=== PATIENT | male | born 1975 | race Caucasian/White ===

== ENCOUNTER 2022-08-02 06:43 | Day surgery (SDC) | payer OTHER ==
--- NOTE | 2022-08-01 14:08 | HP ---
DATE OF SURGERY: 08/02/2022 HISTORY OF PRESENT ILLNESS: The patient is a 46-year-old male who presents for colonoscopy. He has not had any to date. Mother had colon cancer at age 57. Patient feels constipated and fullness in the rectum. PAST MEDICAL HISTORY: Hypertension. PAST SURGICAL HISTORY: Biceps tendon repair. ALLERGIES: NKDA. MEDICATIONS: Hydrochlorothiazide, losartan. FAMILY HISTORY: Colon cancer, diabetes, stroke, heart failure. SOCIAL HISTORY: Occasional alcohol. REVIEW OF SYSTEMS: CONSTITUTIONAL: Denies fever or chills. CHEST: Denies shortness of breath. CVS: Denies chest pain. ABDOMEN: Denies abdominal pain. PHYSICAL EXAMINATION: GENERAL: No acute distress. CHEST: Nonlabored. No shortness of breath. CVS: Regular rate and rhythm. ABDOMEN: Soft. IMPRESSION: Screening and family history of colon cancer. PLAN: Colonoscopy with Dr. James Zamorano. As dictated by Itzel Bolton NP.
[2022-08-02] MEDS ORDERED: Lactated Ringers 1,000 ML IV SCH (07:00)
[2022-08-02] MEDS ORDERED: Xylocaine-Mpf 2% 5 Ml Vial ONE (09:44)
[2022-08-02] MEDS ORDERED: DIPRIVAN 200 MG/20 ML IV ONE ×2 (09:44→10:14)
[2022-08-02] MEDS ORDERED: Versed 2 MG/2 ML Injection ONE (09:45)
[2022-08-02 11:15] VITALS: BP 137/78; PULSE 73; O2SAT 97
--- NOTE | 2022-08-02 13:06 | OP ---
SURGERY DATE/TIME: 08/02/2022 1005 PREOPERATIVE DIAGNOSIS: Screening. POSTOPERATIVE DIAGNOSIS: A 1 cm transverse colon polyp. PROCEDURE: Colonoscopy complete to cecum with hot polypectomy x1. SURGEON: James Zamorano M.D. ANESTHESIA: MAC. COMPLICATIONS: None. CONDITION: Stable. INDICATION: The patient presents for screening exam for healthcare at [facility]. DESCRIPTION OF PROCEDURE: He is taken to endoscopy. Left lateral decubitus position. Anal digital examination satisfactory. Scope introduced. Scope advanced to the cecum. Base of the cecum, ileocecal valve, appendiceal orifice was normal. Circumferential withdrawal back to through the transverse colon 1 cm polyp was taken with hot biopsy forceps to extinction. Through the rest of the transverse, splenic, descending, sigmoid, rectum, anus satisfactory. Plan follow up three years.
== END 2022-08-02 11:15 | disposition home or self-care (01) ==
LOC: SDC 06:43
PROVIDERS: ATTEND Surgery
DX: Z12.11 Encounter for screening for malignant neoplasm of colon (principal); Z80.0 Family history of malignant neoplasm of digestive organs; D12.3 Benign neoplasm of transverse colon
CPT/HCPCS: J2250; J2704

== ENCOUNTER 2023-02-27 09:01 | Emergency (ER) | payer OTHER ==
[2023-02-27 09:23] VITALS: TEMP 98
[2023-02-27] MEDS ORDERED: Sodium Chloride 0.9% 1000 ML 1,000 ML IV SCH (09:30)
--- NOTE | 2023-02-27 09:54 | XRAY ---
Indication: Left facial droop. Multiple contiguous axial images obtained through the head without contrast. Comparison: None Normal appearing brain parenchyma, ventricles, and bony calvarium. Visualized paranasal sinuses and mastoid air cells are clear. Impression: Normal CT head without contrast exam.
--- NOTE | 2023-02-27 10:04 | ERPHSYRPT ---
- History of Present Illness Time Seen by Provider: 02/27/23 09:10 Source: patient, family Exam Limitations: no limitations Patient Subjective Stated Complaint: C/O face numbness that started yesterday at 0730 Triage Nursing Assessment: Patient ambulated back to ER with a steady gait. He is alert and oriented. Speech is a bit mummbled at times. Left corner of mouth pulls downward; droop. C/O left sided neck pain; states that he orginially thoug ht that he pulled a muscle in his neck yesterday causing his issues. WYMAN WNL. No SOB. Physician History: This is an obese 47-year-old white male patient who presents to the emergency department with left-sided facial numbness that began at 07 30 on 02/25/2023. Yesterday evening, the patient's systolic blood pressure was greater than 200. Patient received 81 mg aspirin by his who provided additional, independent history. They also doubled up on his losartan blood pressure medicine. This morning, there is still facial numbness on his left side and they noticed left facial drooping and pain on the left lateral neck. Patient denies chest pain. He denies shortness of breath. He has no abdominal pain. He has never had anything like this before. He denies headache. He denies visual changes. Patient has a history of seasonal allergies and hypertension. Timing/Duration: yesterday Severity: mild Character of Deficits: altered sensation (Moderate left facial numbness), Left Facial (Left facial droop) Deficits: no difficulties Baseline/Normal Cognition: alert oriented x 3 Current Cognition: alert oriented x 3 Baseline Gait: walks w/o assistance Associated Symptoms: paresthesia, No loss of consciousness, No slurred speech, No vision changes, No chest pain Allergies/Adverse Reactions: No Known Drug Allergies Allergy (Verified 02/27/23 09:23) Home Medications: Losartan Potassium [Cozaar] 25 mg PO DAILY 06/26/22 [History] Fexofenadine HCl [Kiera Allergy] 1 tab PO DAILY 08/02/22 [History] Hx Tetanus, Diphtheria Vaccination/Date Given: Yes Hx Influenza Vaccination/Date Given: No Hx Pneumococcal Vaccination/Date Given: No Immunizations Up to Date: Yes Travel Risk - International Travel Have you traveled outside of the country in past 3 weeks: No - Coronavirus Screening Are you exhibiting any of the following symptoms?: No Close contact with a COVID-19 positive Pt in past 14-21 Days: No - Vaccine Status Have you recieved a Covid-19 vaccination: No - Review of Systems Constitutional: No Symptoms Eyes: No Symptoms Ears, Nose, & Throat: No Symptoms Respiratory: No Symptoms Cardiac: No Symptoms Abdominal/Gastrointestinal: No Symptoms Genitourinary Symptoms: No Symptoms Musculoskeletal: No Symptoms Skin: No Symptoms Neurological: Parasthesia (Left facial numbness), No Dizziness, No Gait Changes, No Headache Psychological: No Symptoms Endocrine: No Symptoms Hematologic/Lymphatic: No Symptoms Immunological/Allergic: No Symptoms All Other Systems: Reviewed and Negative - Past Medical History Pertinent Past Medical History: Yes Neurological History: No Pertinent History ENT History: No Pertinent History Cardiac History: Hypertension Respiratory History: No Pertinent History Endocrine Medical History: No Pertinent History Musculoskeletal History: No Pertinent History GI Medical History: No Pertinent History History: No Pertinent History Psycho-Social History: No Pertinent History Male Reproductive Disorders: No Pertinent History - Past Surgical History Past Surgical History: Yes Neuro Surgical History: No Pertinent History Cardiac: No Pertinent History Respiratory: No Pertinent History Gastrointestinal: No Pertinent History Genitourinary: No Pertinent History Musculoskeletal: Other Male Surgical History: No Pertinent History Other Surgical History: biceps tendon repair L arm - Social History Smoking Status: Never smoker Exposure to second hand smoke: No Drug Use: none Patient Lives Alone: No - Nursing Vital Signs Nursing Vital Signs: Initial Vital Signs Temperature 98 F 02/27/23 09:01 Pulse Rate 69 02/27/23 09:01 Respiratory Rate 12 02/27/23 09:01 Blood Pressure 169/99 02/27/23 09:01 O2 Sat by Pulse Oximetry 94 L 02/27/23 09:01 Pain Scale Pain Intensity 0 - Gabby Coma Scale Best Eye Response (Churdan): (4) open spontaneously Best Verbal Response (Gabby): (5) oriented Best Motor Response (Churdan): (6) obeys commands Gabby Total: 15 - Physical Exam General Appearance: no apparent distress, alert, obese Eye Exam: bilateral eye: normal inspection, PERRL, EOMI Ears, Nose, Throat Exam: normal ENT inspection, moist mucous membranes Neck Exam: normal inspection, non-tender, supple, full range of motion Respiratory: normal breath sounds, lungs clear, No chest tenderness, No respiratory distress, No airway intact Cardiovascular: regular rate/rhythm, normal heart sounds, normal peripheral pulses Gastrointestinal: soft, normal bowel sounds, No tenderness Rectal Exam: not done Back Exam: normal inspection, normal range of motion, No CVA tenderness, No ve rtebral tenderness Extremity Exam: normal inspection, normal range of motion, pelvis stable Mental Status: alert, oriented x 3, 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 Exam: normal hearing, normal speech, PERRL, facial droop (Left side), facial paresthesias (Left facial), tongue midline Coordination/Gait: normal finger to nose, normal gait, normal cerebellar function Motor/Sensory: no motor deficit, no sensory deficit, no pronator drift Skin Exam: normal color, warm, dry SpO2 Interpretation: borderline oxygenation SpO2: 94 O2 Delivery: Room Air - Course Nursing assessment & vital signs reviewed: Yes EKG Interpreted by Me: RATE (77), Sinus Rhythm, NORMAL AXIS, LAFB (Consider left anterior fascicular block), NORMAL INTERVALS, NORMAL QRS, Other (No acute ischemic changes on today's twelve-lead EKG.) Ordered Tests: Active Orders 24 hr Category Date Time Status Sounding Device Operator STAT Care 02/27/23 09:29 Active EKG-ER Only STAT Care 02/27/23 09:28 Active IV Insertion STAT Care 02/27/23 09:28 Active NPO (ED) STAT Care 02/27/23 09:28 Active Pulse Oximetry (ED) STAT Care 02/27/23 09:28 Active HEAD WITHOUT CONTRAST [CT] Stat Exams 02/27/23 09:29 Completed MRI BRAIN W/O CONTRAST [MRI] Stat Exams 02/27/23 15:18 Completed CBC W DIFF Stat Lab 02/27/23 10:15 Completed CMP Stat Lab 02/27/23 10:15 Completed UA W/RFX UR CULTURE Stat Lab 02/27/23 10:50 Completed Medication Summary Generic Name Dose Route Start Last Admin Trade Name Freq PRN Reason Stop Dose Admin Sodium Chloride 1,000 mls @ 100 mls/hr 02/27/23 09:30 02/27/23 10:14 Sodium Chloride 0.9% 1000 Ml IV 03/29/23 09:29 100 mls/hr .Q10H DANNA Administration Discontinued Medications Generic Name Dose Route Start Last Admin Trade Name Freq PRN Reason Stop Dose Admin Acetaminophen 650 mg 02/27/23 12:17 02/27/23 12:21 Acetaminophen 325 Mg Tablet PO 02/27/23 12:18 650 mg STAT ONE Administration Acetaminophen Confirm 02/27/23 12:19 Acetaminophen 325 Mg Tablet Administered 02/27/23 12:20 Dose 650 mg .ROUTE .STK-MED ONE Prednisone 20 mg 02/27/23 17:10 Prednisone 20 Mg Tablet PO 02/27/23 17:11 STAT ONE Lab/Rad Data: Laboratory Result Diagrams 02/27/23 10:15 02/27/23 10:15 Laboratory Results 02/27/23 02/27/23 02/27/23 Range/Units 10:50 10:15 10:15 WBC 6.9 (4.0-10.5) x10^3/uL RBC 5.30 (4.1-5.6) x10^6/uL Hgb 16.7 (12.5-18.0) g/dL Hct 49.2 (42-50) % MCV 92.8 (78-100) fL MCH 31.5 (26-32) pg MCHC 33.9 (32-36) g/dL RDW 13.2 (11.5-14.0) % Plt Count 240 (150-450) x10^3/uL MPV 9.4 (7.5-11.0) fL Gran % 53.8 (36.0-66.0) % Immature Gran % (Auto) 0.6 H (0.00-0.4) % Nucleat RBC Rel Count 0.0 (0.00-0.1) % Eos # (Auto) 0.37 (0-0.5) x10^3/uL Immature Gran # (Auto) 0.04 H (0.00-0.03) x10^3u/L Absolute Lymphs (auto) 2.10 (1.0-4.6) x10^3/uL Absolute Monos (auto) 0.61 (0.0-1.3) x10^3/uL Absolute Nucleated RBC 0.00 (0.00-0.01) x10^3u/L Lymphocytes % 30.3 (24.0-44.0) % Monocytes % 8.8 (0.0-12.0) % Eosinophils % 5.3 H (0.00-5.0) % Basophils % 1.2 (0.0-0.4) % Absolute Granulocytes 3.74 (1.4-6.9) x10^3/uL Basophils # 0.08 (0-0.4) x10^3/uL Sodium 138 (137-145) mmol/L Potassium 3.8 (3.5-5.1) mmol/L Chloride 107 (98-107) mmol/L Carbon Dioxide 23 (22-30) mmol/L Anion Gap 11.8 (5-15) MEQ/L BUN 9 (9-20) mg/dL Creatinine 0.64 L (0.66-1.25) mg/dL Estimated GFR 116.8 ML/MIN Glucose 83 (74-106) mg/dL Calcium 8.6 (8.4-10.2) mg/dL Total Bilirubin 0.50 (0.2-1.3) mg/dL AST 20 (17-59) U/L ALT 25 (0-50) U/L Alkaline Phosphatase 202 H (38-126) U/L Serum Total Protein 7.1 (6.3-8.2) g/dL Albumin 3.9 (3.5-5.0) g/dL Urine Color Yellow (Yellow) Urine Appearance Clear (Clear) Urine pH 6.0 (4.6-8.0) Ur Specific Baker 1.010 (1.005-1.030) Urine Protein Negative (Negative) Urine Glucose (UA) Negative (Negative) mg/dL Urine Ketones Negative (Negative) Urine Blood Negative (Negative) Urine Nitrite Negative (Negative) Urine Bilirubin Negative (Negative) Urine Urobilinogen 1.0 A (0.2) mg/dL Ur Leukocyte Esterase Negative (Negative) U Hyaline Cast (Auto) NONE SEEN (0-2) /LPF Urine Microscopic RBC 0-2 (0-5) /HPF Urine Microscopic WBC 0-2 (0-5) /HPF Ur Epithelial Cells None Seen (None Seen) /HPF Urine Bacteria None Seen (None Seen) /HPF Urine Culture Reflexed NO (NO) - Progress Progress Note: 02/27/23 10:03 This patient's medical issue is moderate to high complexity. The level of complexity in the workup performed based on review the patient's past medical history, review the patient's medication list, review of patient's drug allergy list, history present illness and physical findings on examination. The workup in this patient includes placement of intravenous line, CT scan of the head, twelve-lead EKG, CBC, CMP, urinalysis, teleneurologist consultation. 02/27/23 10:05 CT scan of the head without contrast was interpreted by the radiologist and I reviewed the impression. The impression states that there is a normal CT scan o f the head without contrast. 02/27/23 16:28 Since the patient's arrival here in the emergency department we have been communicating with the teleneurology group. They said they are very busy with more emergent neurologic issues. The nursing staff has informed this patient and his spouse about this delay. Patient is neurologically stable at this time. He has not changed clinically from the time he was admitted to the emergency department. I reexamined him just now and I again updated him on teleneurology evaluation status. Before the MRI radiology techs left for the day I ordered an MRI of the brain with and without contrast. The complete MRI of the brain without was performed. The patient was becoming claustrophobic and refused any further MRI study. Therefore, the MRI of the brain with contrast was not performed. 02/27/23 17:[address] Baker, our teleneurologist, after she evaluated the patient. Patient is diagnosed with a Dean's palsy. Dr. Baker recommends eyepatch, moisturizing eyedrops in the left eye as well as acyclovir and prednisone as an outpatient. Counseled pt/family regarding: lab results, diagnosis, need for follow-up, rad results Medical Desision Making - Independent Historian Additional History obtained from: Spouse - Diagnostic Testing Diagnostic test were ordered, analyzed, and reviewed by me: Yes Radiological Interpretation: Reviewed by me, Teleradiologist Report - Risk of complications The pt has a mod risk of morbidity or mortality based on: Need for prescription drug management - Departure Departure Disposition: Home Clinical Impression: Dean's palsy Condition: Stable Critical Care Time: No Referrals: DELVIS [facility]INTA[facility]ER [Nurse Practioner] - Follow up/PCP as directed Additional Instructions: Drink plenty fluids. Take your medication as prescribed. Call your primary care provider to make a follow-up appointment in the next 3 to 5 days. Prescriptions: Acyclovir 800 mg [Acyclovir] 800 mg PO 5XD 7 Days #35 tablet Prednisone 10 mg [Deltasone 10 mg] 10 mg PO TID #12 tablet
[2023-02-27] MEDS ORDERED: Sodium Chloride 0.9% 1000 ML 1,000 ML ONE (10:14)
[2023-02-27 10:20] LABS: Absolute Neutrophil Ct (ANC) 3.74 x10^3/uL (1.4-6.9); BASOPHIL % 1.2 % (0.0-0.4); Basophil (Absolute #) 0.08 x10^3/uL (0-0.4); Eosinophil % 5.3 % (0.00-5.0); Eosinophil (Absolute #) 0.37 x10^3/uL (0-0.5); Hematocrit 49.2 % (42-50); Hemoglobin 16.7 g/dL (12.5-18.0); IMMATURE GRAN # 0.04 x10^3u/L (0.00-0.03); IMMATURE GRAN % 0.6 % (0.00-0.4); Lymphocytes % 30.3 % (24.0-44.0); Mean Cell Volume 92.8 fL (78-100); Mean Corpuscular Hemoglobin 31.5 pg (26-32); Mean Corpuscular Hgb Concent. 33.9 g/dL (32-36); Mean Platelet Volume 9.4 fL (7.5-11.0); Monocyte (Absolute #) 0.61 x10^3/uL (0.0-1.3); Monocytes % 8.8 % (0.0-12.0); Neutrophil % 53.8 % (36.0-66.0); Platelet Count 240 x10^3/uL (150-450); Red Cell Distribution Width 13.2 % (11.5-14.0); White Blood Count 6.9 x10^3/uL (4.0-10.5)
[2023-02-27 10:33] LABS: ALBUMIN 3.9 g/dL (3.5-5.0); ANION GAP 11.8 MEQ/L (5-15); BILIRUBIN,TOTAL 0.5 mg/dL (0.2-1.3); Calcium 8.6 mg/dL (8.4-10.2); Creatinine 1 0.64 mg/dL (0.66-1.25); EST GLOMERULAR FILTRATION RATE 116.8 ML/MIN; Potassium 3.8 mmol/L (3.5-5.1); Total Protein 7.1 g/dL (6.3-8.2)
[2023-02-27 11:26] LABS: Appearance Clear (Clear); Bacteria None Seen /HPF (None Seen); Bilirubin Negative (Negative); Blood Negative (Negative); Epithelial Cells None Seen /HPF (None Seen); Glucose, Urine Negative (Negative); Hyaline Casts NONE SEEN /LPF (0-2); Ketones Negative (Negative); Leukocyte Esterase Negative (Negative); Nitrite Negative (Negative); Protein,Urine Dip Negative (Negative); RBC 0-2 /HPF (0-5); WBC 0-2 /HPF (0-5)
[2023-02-27 11:30] LABS: ADD URINE CULTURE? NO (NO)
[2023-02-27] MEDS ORDERED: TYLENOL 325 MG PO ONE (12:17)
[2023-02-27] MEDS ORDERED: TYLENOL 325 MG ONE (12:19)
[2023-02-27 14:03] VITALS: RESP 18
[2023-02-27 16:31] VITALS: O2SAT 94
--- NOTE | 2023-02-27 16:37 | XRAY ---
Indication: Left facial droop. Normal CT head. Sagittal, coronal, and axial MRI brain performed without contrast using T1, T2, FLAIR, diffusion, and ADC sequences. Comparison: None Ventriculosulcal pattern appears symmetric. No acute intracranial hemorrhage, abnormal extra axial fluid collection, or mass effect. Diffusion images negative for restricted signal. Fourth ventricle is midline without hydrocephalus. 7/8 cranial nerve complex bilaterally symmetric. Normal flow void signal within the major intracerebral circulation. Normal appearing craniocervical junction and sella turcica. Visualized paranasal sinuses are clear. Impression: Negative MRI brain without contrast exam.
[2023-02-27 17:09] VITALS: BP 152/96; PULSE 78
[2023-02-27] MEDS ORDERED: DELTASONE 20 MG PO ONE (17:10)
[2023-02-27] MEDS ORDERED: ACYCLOVIR PO ONE ×2 (17:11→17:24)
[2023-02-27] MEDS ORDERED: ACYCLOVIR ONE (17:18)
[2023-02-27] MEDS ORDERED: DELTASONE 20 MG ONE (17:18)
== END 2023-02-27 17:36 | disposition home or self-care (01) ==
LOC: ED 09:01
DX: G51.0 Bell's palsy (principal); I10 Essential (primary) hypertension; Z79.52 Long term (current) use of systemic steroids; Z79.899 Other long term (current) drug therapy; Z28.310 Unvaccinated for COVID-19
CPT/HCPCS: 36000; 36415; 70450; 70551; 80053; 81001; 85025; 93005; 93041; 94760; 96360; 96361; 99284; A9270-GY